=== PATIENT | male | born 1995 | race Caucasian/White ===

== ENCOUNTER 2017-08-02 16:35 | Emergency (ER) | payer OTHER ==
[~2017-08-02] VITALS: Ht 182.9 cm; Wt 117.0 kg
[2017-08-02 16:45] VITALS: TEMP 37; Ht 182.9 cm; Wt 117.0 kg
[2017-08-02] MEDS ORDERED: ACETAMINOPHEN 325 MG TAB PO STA (17:12)
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
[2017-08-02] MEDS ORDERED: AFRINWC (17:16)
[2017-08-02 17:23] VITALS: BP 135/87; PULSE 72; O2SAT 100
== END 2017-08-02 17:24 | disposition home or self-care (01) ==
LOC: C.EDB 16:36 → C.EDD 17:24
DX: R51 Headache (principal); V47.5XXA Car driver injured in collision with fixed or stationary object in traffic accident, initial encounter; Y92.488 Other paved roadways as the place of occurrence of the external cause